=== PATIENT | male | born 1950 | race Hispanic/Latino ===

== ENCOUNTER 2021-06-12 01:44 | Inpatient (IN) | payer MEDICARE, BC ==
[2021-06-12 02:44] LABS: ALT (SGPT) 53 U/L (8-55); AST (SGOT) 53 U/L (5-34); Albumin 3.8 g/dL (3.4-4.8); Alkaline Phosphatase 121 U/L (40-110); Anion Gap 18 mmol/L (10-20); BUN (Urea Nitrogen) 12 mg/dL (8.4-25.7); Bilirubin, Total 0.7 mg/dL (0.2-1.2); Calc. Creatinine Clearance 0 mL/min (70-130); Calcium 9.2 mg/dL (7.8-10.44); Carbon Dioxide 20 mmol/L (23-31); Chloride 107 mmol/L (98-107); Globulin 3.2 g/dL (2.4-3.5); Glucose 93 mg/dL (83-110); Potassium 3.7 mmol/L (3.5-5.1); Sodium 141 mmol/L (136-145)
[2021-06-12 02:46] LABS: #Eosinphils 0.1 thou/uL (0.0-0.7); #Lymphocytes 0.8 thou/uL (1.20-3.40); #Neutrophils 3.1 thou/uL (1.40-6.50); %Basophils 0.1 % (0.0-1.0); %Eosinophils 1.4 % (0.0-10.0); %Lymphocytes 20.6 % (21.0-51.0); %Monocytes 0.5 % (0.0-10.0); %Neutrophils 77.4 % (42.0-75.0); Hemoglobin 14.8 g/dL (14.0-18.0); Mean Corpuscular HGB CONC 32.7 g/dL (32.0-36.0); Mean Platelet Volume 9.9 fL (7.4-10.4); Platelet Count 97 thou/uL (130-400); RBC Distribution Width 12.6 % (11.5-14.5); Red Blood Cell (RBC) Count 4.76 mill/uL (4.70-6.10)
[2021-06-12 02:55] LABS: SARS-CoV-2 NAA Rapid Test Not Detected (NotDetected)
[2021-06-12 03:34] LABS: Bilirubin Negative (Negative); Blood, Urine Trace (Negative); Clarity Turbid (Clear); Glucose, Urine (Dipstick) Normal (Negative); Ketone, Urine Negative (Negative); Leukocyte 500 Leu/uL (Negative); Nitrite 2+ (Negative); Protein, Urine (Dipstick) 10 mg/dL (Neg-Trace); Specific Gravity, Urine 1.012 (1.002-1.036); Squamous Epithelial 0-3 HPF (0-3); Urobilinogen Normal mg/dL (Less than 2); WBC/HPF Greater than 50 HPF (0-3); pH, Urine 5.5 (5.0-9.0)
[2021-06-12 03:41] LABS: Bacteria/HPF 3+ HPF (None Seen)
[2021-06-12 05:15] LABS: Lactic Acid 0.7 mmol/L (0.5-2.2)
[2021-06-12] MEDS ORDERED: Ondansetron ODT 4 MG TAB SL PRN (06:15)
[2021-06-12] MEDS ORDERED: Ondansetron PF 4 MG/2 ML Vial IVP PRN ×2 (06:15→11:07)
[2021-06-12] MEDS ORDERED: Acetaminophen 325 MG TAB PO PRN ×2 (06:15→11:07)
[2021-06-12] MEDS ORDERED: Sodium Chloride 0.9% 1,000 ML IV SCH (06:15)
[2021-06-12] MEDS ORDERED: Bisacodyl 10 MG SUPP PR PRN (11:07)
[2021-06-12] MEDS ORDERED: Calcium Carbonate 500 MG ChewTAB PO PRN (11:07)
[2021-06-12] MEDS ORDERED: HYDROcodone/Acetaminophen 5/325 mg Tablet PO PRN (11:07)
[2021-06-12] MEDS ORDERED: Guaifenesin DM 100-10/5 ML UDCUP PO PRN (11:07)
[2021-06-12] MEDS ORDERED: Non-Formulary Item 1 EACH (Trazodone Hcl [Trazodone Hcl] 100 MG Tablet) PO PRN (11:10)
[2021-06-12] MEDS ORDERED: Polyethylene Glycol 3350 17 GM Packet PO PRN (11:10)
[2021-06-12] MEDS ORDERED: traZODone HCl 50 MG TAB PO PRN (11:31)
[2021-06-12] MEDS ORDERED: Lidocaine 5% Patch TD SCH (11:45)
[2021-06-12] MEDS ORDERED: VANCOMYCIN 1.75 GM/350 ML BAG 1.75 GM in Premix Bag 1 BAG IVPB SCH (12:00)
[2021-06-12] MEDS: Sodium Chloride 0.9% 1,000 ML IV SCH (13:29)
[2021-06-12] MEDS: cefTRIAXone\\ROCEPHIN 1 GM in Sodium Chloride 0.9% 100 ML IVPB SCH (15:31)
[2021-06-12] MEDS: Gabapentin 100 MG CAP PO SCH ×3 (15:33→20:01)
[2021-06-12 16:37] VITALS: BMI 29.2
[2021-06-12] MEDS: Atorvastatin Calcium 40 MG TAB PO SCH (20:00)
[2021-06-12] MEDS: busPIRone HCl 10 MG TAB PO SCH (20:00)
[2021-06-12] MEDS: Famotidine 20 MG TAB PO SCH (20:00)
[2021-06-12] MEDS: Metoprolol Tartrate 50 MG TAB PO SCH (20:00)
[2021-06-12] MEDS: Mirtazapine 30 MG TAB PO SCH (20:00)
[2021-06-12] MEDS: Morphine ER 15 MG TAB PO SCH (20:01)
[2021-06-12] MEDS: Senokot S 8.6-50 MG TAB PO SCH (20:01)
[2021-06-12] MEDS: Transdermal Patch Removal TOP SCH (20:36)
[2021-06-12] MEDS ORDERED: Metoprolol Tartrate 25 MG TAB PO SCH (21:00)
[2021-06-12] MEDS ORDERED: Vancomycin 1 GM in Premix Bag 1 BAG IVPB SCH (21:00)
[2021-06-13] MEDS: Sodium Chloride 0.9% 1,000 ML IV SCH (03:27)
[2021-06-13 05:50] LABS: #Eosinphils 0.1 thou/uL (0.0-0.7); #Lymphocytes 1.6 thou/uL (1.20-3.40); #Monocytes 0.5 thou/uL (0.11-0.59); #Neutrophils 4.1 thou/uL (1.40-6.50); %Basophils 0.5 % (0.0-1.0); %Eosinophils 1.1 % (0.0-10.0); %Lymphocytes 25.5 % (21.0-51.0); %Monocytes 7.6 % (0.0-10.0); %Neutrophils 65.3 % (42.0-75.0); Hemoglobin 12.1 g/dL (14.0-18.0); Mean Corpuscular HGB CONC 32.3 g/dL (32.0-36.0); Mean Corpuscular Hemoglobin 30.9 pg (27.0-31.0); Mean Corpuscular Volume 95.7 fL (78.0-98.0); Mean Platelet Volume 10.3 fL (7.4-10.4); Platelet Count 89 thou/uL (130-400); RBC Distribution Width 12.6 % (11.5-14.5); Red Blood Cell (RBC) Count 3.92 mill/uL (4.70-6.10); White Blood Cell (WBC) Count 6.3 thou/uL (4.8-10.8)
[2021-06-13 06:16] LABS: Anion Gap 11 mmol/L (10-20); BUN (Urea Nitrogen) 7 mg/dL (8.4-25.7); Calc. Creatinine Clearance 79 mL/min (70-130); Calcium 8.3 mg/dL (7.8-10.44); Carbon Dioxide 22 mmol/L (23-31); Chloride 113 mmol/L (98-107); Glucose 90 mg/dL (83-110); Potassium 3.7 mmol/L (3.5-5.1); Sodium 142 mmol/L (136-145)
[2021-06-13] MEDS: Aspirin 81 mg Enteric Coated Tablet PO SCH (08:44)
[2021-06-13] MEDS: Gabapentin 100 MG CAP PO SCH ×3 (08:44→21:18)
[2021-06-13] MEDS: DULoxetine 60 MG CAP PO SCH (08:44)
[2021-06-13] MEDS: Senokot S 8.6-50 MG TAB PO SCH ×2 (08:44→21:23)
[2021-06-13] MEDS: busPIRone HCl 10 MG TAB PO SCH ×2 (08:44→21:18)
[2021-06-13] MEDS: Morphine ER 15 MG TAB PO SCH ×2 (08:45→21:19)
[2021-06-13] MEDS: Amlodipine 5 MG TAB PO SCH (08:45)
[2021-06-13] MEDS: Enoxaparin Sodium 40 MG/0.4 ML SYRINGE SC SCH (08:46)
[2021-06-13] MEDS: Famotidine 20 MG TAB PO SCH ×2 (08:46→21:18)
[2021-06-13] MEDS: Metoprolol Tartrate 50 MG TAB PO SCH ×2 (08:46→21:19)
[2021-06-13] MEDS: Lidocaine 5% Patch TD SCH (08:47)
[2021-06-13] MEDS ORDERED: LIDOCAINE TP SCH (09:00)
[2021-06-13] MEDS: cefTRIAXone\\ROCEPHIN 1 GM in Sodium Chloride 0.9% 100 ML IVPB SCH (14:24)
[2021-06-13] MEDS: Atorvastatin Calcium 40 MG TAB PO SCH (21:18)
[2021-06-13] MEDS: Mirtazapine 30 MG TAB PO SCH (21:19)
[2021-06-13] MEDS: Transdermal Patch Removal TOP SCH (21:23)
[2021-06-14] MEDS: Gabapentin 100 MG CAP PO SCH (08:21)
[2021-06-14] MEDS: Metoprolol Tartrate 50 MG TAB PO SCH (08:21)
[2021-06-14] MEDS: Aspirin 81 mg Enteric Coated Tablet PO SCH (08:21)
[2021-06-14] MEDS: DULoxetine 60 MG CAP PO SCH (08:22)
[2021-06-14] MEDS: Senokot S 8.6-50 MG TAB PO SCH (08:22)
[2021-06-14] MEDS: busPIRone HCl 10 MG TAB PO SCH (08:22)
[2021-06-14] MEDS: Morphine ER 15 MG TAB PO SCH (08:22)
[2021-06-14] MEDS: Famotidine 20 MG TAB PO SCH (08:23)
[2021-06-14] MEDS: Enoxaparin Sodium 40 MG/0.4 ML SYRINGE SC SCH (08:23)
[2021-06-14] MEDS: Amlodipine 5 MG TAB PO SCH (08:23)
[2021-06-14] MEDS: Lidocaine 5% Patch TD SCH (08:25)
[2021-06-14 12:08] VITALS: BP 157/90; TEMP 98.5
[2021-06-14] MEDS ORDERED: Ciprofloxacin 500 MG TAB PO SCH (20:00)
== END 2021-06-14 13:45 | disposition home or self-care (01) | DRG 871 ==
LOC: ERS 01:44 → T4-A 04:15
PROVIDERS: ADMIT Student in an Organized Health Care Education/Training Program; ATTEND Internal Medicine
DX: A41.51 Sepsis due to Escherichia coli [E. coli] (principal); G93.41 Metabolic encephalopathy; N39.0 Urinary tract infection, site not specified; I25.10 Atherosclerotic heart disease of native coronary artery without angina pectoris; I10 Essential (primary) hypertension; E78.5 Hyperlipidemia, unspecified; M47.812 Spondylosis without myelopathy or radiculopathy, cervical region; G89.4 Chronic pain syndrome; M47.816 Spondylosis without myelopathy or radiculopathy, lumbar region; F39 Unspecified mood [affective] disorder; Z20.822 Contact with and (suspected) exposure to COVID-19; M54.5 Low back pain; D69.6 Thrombocytopenia, unspecified; F32.9 Major depressive disorder, single episode, unspecified; N40.0 Benign prostatic hyperplasia without lower urinary tract symptoms; Z95.5 Presence of coronary angioplasty implant and graft; Z79.899 Other long term (current) drug therapy; Z88.8 Allergy status to other drugs, medicaments and biological substances
CPT/HCPCS: 0240U; 36415; 71045; 80048; 80053; 81003; 81015; 83605; 83880; 85025; 87040; 87077; 87086; 87186; 93005; J0696; J1956; J3370; J3490

== ENCOUNTER 2024-05-01 14:49 | Outpatient (CLI) | payer OTHER ==
[2024-05-01] MEDS ORDERED: Iopamidol 370 76% 100 ML VIAL ONE (15:04)
== END 2024-05-01 14:50 | disposition home or self-care (01) ==
LOC: BICCT 14:49
PROVIDERS: ATTEND Physical Therapist
DX: C22.0 Liver cell carcinoma (principal); R16.0 Hepatomegaly, not elsewhere classified
CPT/HCPCS: 74170; 82565

== ENCOUNTER 2024-08-12 17:14 | Emergency (ER) | payer OTHER ==
[~2024-08-12 17:14] MED LIST: Iopamidol-370 76% 500 ML MDV (1 ML CHARGE) ONE
[2024-08-12 20:12] LABS: #Basophils Less than 0.03 10x3/uL (0.0-0.2); #Eosinophils Less than 0.03 10x3/uL (0.0-0.7); %Basophils 0.2 % (0.0-1.0); %Eosinophils 0.2 % (0.0-10.0); %Lymphocytes 11.1 % (21.0-51.0); %Monocytes 7.2 % (0.0-10.0); %Neutrophils 80.9 % (42.0-75.0); Hematocrit 49.7 % (42.0-52.0); Hemoglobin 15.8 g/dL (14.0-18.0); Mean Corpuscular HGB CONC 31.8 g/dL (32.0-36.0); Mean Corpuscular Hemoglobin 29.8 pg (27.0-31.0); Mean Corpuscular Volume 93.6 fL (78.0-98.0); Mean Platelet Volume 12.4 fL (7.4-10.4); Platelet Count 150 10x3/uL (130-400); RBC Distribution Width 13.4 % (11.5-14.5); Red Blood Cell (RBC) Count 5.31 mill/uL (4.70-6.10)
[2024-08-12 20:30] LABS: ALT (SGPT) 17 U/L (8-55); AST (SGOT) 24 U/L (5-34); Albumin 3.4 g/dL (3.4-4.8); Alkaline Phosphatase 61 U/L (40-110); Anion Gap 16 mmol/L (10-20); BUN (Urea Nitrogen) 24 mg/dL (8.4-25.7); Bilirubin, Total 0.5 mg/dL (0.2-1.2); Calc. Creatinine Clearance 0 mL/min (70-130); Calcium 9.2 mg/dL (7.8-10.44); Carbon Dioxide 25 mmol/L (23-31); Chloride 104 mmol/L (98-107); Estimated GFR 53; Globulin 3.1 g/dL (2.4-3.5); Glucose 100 mg/dL (83-110); Lipase 62 U/L (8-78); Potassium 4.1 mmol/L (3.5-5.1); Protein, Total 6.5 g/dL (5.8-8.1); Sodium 141 mmol/L (136-145)
== END 2024-08-12 23:58 | disposition home or self-care (01) ==
LOC: ERS 17:14
DX: N17.9 Acute kidney failure, unspecified (principal); I10 Essential (primary) hypertension
CPT/HCPCS: 36415; 71045; 74177; 76705; 80053; 83690; 85025; Q9967

== ENCOUNTER 2024-11-04 12:26 | Outpatient (CLI) | payer OTHER ==
[2024-11-04] MEDS ORDERED: Sincalide 5 MCG VIAL ONE (14:27)
[2024-11-04] MEDS ORDERED: Bacteriostatic Normal Saline 30 ML VIAL ONE (14:28)
[2024-11-04] MEDS ORDERED: Sterile Water 10 ML ONE (14:28)
== END 2024-11-04 12:27 | disposition home or self-care (01) ==
LOC: NM 12:26
PROVIDERS: ATTEND Surgery
DX: R10.11 Right upper quadrant pain (principal)
CPT/HCPCS: 78227; A9537; J2805

== ENCOUNTER 2025-06-04 12:12 | Outpatient (CLI) | payer OTHER | END 2025-06-04 12:13 | disposition home or self-care (01) | LOC: ULT 12:12 | PROVIDERS: ATTEND Family Medicine | DX: R79.89 Other specified abnormal findings of blood chemistry (principal) | CPT/HCPCS: 76536 ==